=== PATIENT | female | born 1995 | race Caucasian/White ===

== ENCOUNTER 2017-12-08 22:29 | Inpatient (IN) | payer OTHER ==
[2017-12-08] MEDS ORDERED: SODIUM CHLORIDE 1,000 ML IV STA (22:45)
[2017-12-08] MEDS ORDERED: ONDANSETRON 4 MG/2 ML VIAL IVPUSH ONE ×2 (22:45→23:17)
[2017-12-08] MEDS ORDERED: FAMOTIDINE IV 20 MG/12 ML VIAL IVPUSH ONE (22:47)
--- NOTE | 2017-12-08 22:54 | PDOC ---
History of Present Illness - History of Present Illness Initial Comments: Ms Almanzar is a 22yo otherwise healthy F who presented to ER with 2 days of intractable vomiting and abdominal pain. States that she felt epigastric pain that is now constant. The pain is at times post-prandial, and is at times positional (worse with lying down). Vomiting is NBNB. She denies similar symptoms in the past. She went to [facility] ER, had an abdominal XR and was not given a diagnosis or treatment. Denies fevers, chest pain, shortness of breath. She denies alcohol, smoking, drugs. Pt was actively wretching in the room and it was difficult to get more history. 12/08/17 23:19 <Aubrey Meza - Last Filed: 12/08/17 23:19> <Peter Reyna - Last Filed: 12/09/17 01:35> - General Chief Complaint: Nausea/Vomiting Stated Complaint: SICK Time Seen by Provider: 12/08/17 22:42 Past History - Past Medical History Asthma: No Cancer: No Cardiac Disorders: No COPD: No Diabetes: No HTN: No Seizures: No Thyroid Disease: No Other medical history: Pt denies - Reproductive History (#): 3 Para: 1 Cervical CA: No Dysfunctional Uterine Bleeding: No Ectopic : No Endometrial CA: No Polycystic Ovaries: No Therapeutic (s) & number: Yes (1) Tubal Ligation: No Spontaneous : 0 - Immunization History Immunization Up to Date: Yes - Suicide/Smoking/Psychosocial Hx Smoking Status: No Smoking History: Never smoked Have you smoked in the past 12 months: No Number of Cigarettes Smoked Daily: 0 Information on smoking cessation initiated: No Hx Alcohol Use: No Drug/Substance Use Hx: No Substance Use Type: None Hx Substance Use Treatment: No <Aubrey Meza - Last Filed: 12/08/17 23:19> <Peter Reyna - Last Filed: 12/09/17 01:35> - Past Medical History Allergies/Adverse Reactions: Allergies Allergy/AdvReac Type Severity Reaction Status Date / Time No Known Allergies Allergy Verified 08/24/16 14:49 Home Medications: Ambulatory Orders NK [No Known Home Medication] 12/08/17 Review of Systems - Review of Systems Able to Perform ROS?: Yes Constitutional: No: Chills, Diaphoresis, Fever HEENTM: No: Eye Pain, Blurred Vision, Tearing Respiratory: No: Cough, Orthopnea, Shortness of Breath Cardiac (ROS): No: Chest Pain, Edema, Irregular Heart Rate ABD/GI: Yes: Vomiting, Abdominal cramping : No: Burning, Dysuria, Discharge Musculoskeletal: No: Back Pain, Gout, Joint Pain Integumentary: No: Bruising, Change in Color Neurological: No: Headache, Numbness, Paresthesia Psychiatric: No: Anxiety, Depression, Frequent Crying Endocrine: No: Excessive Sweating, Flushing Hematologic/Lymphatic: No: Anemia, Blood Clots, Easy Bleeding <Aubrey Meza - Last Filed: 12/08/17 23:19> *Physical Exam - Vital Signs Last Vital Signs Temp Pulse Resp BP Pulse Ox 98.1 F 70 18 120/82 96 12/08/17 22:41 12/08/17 22:41 12/08/17 22:41 12/08/17 22:41 12/08/17 22:41 - Physical Exam Comments: GEN: Awake but ill appearing, actively wretching and vomiting during interview HEENT: PERRLA, EOMi CV: S1, S2, RRR LUNG: CTABL ABD: Soft, diffuse tenderness, mostly in epigastrium MSK: NO edema, no erythema NEURO: CN 2-12 intact <Aubrey Meza - Last Filed: 12/08/17 23:19> - Vital Signs Last Vital Signs Temp Pulse Resp BP Pulse Ox 98.1 F 70 18 120/82 96 12/08/17 22:41 12/08/17 22:41 12/08/17 22:41 12/08/17 22:41 12/08/17 22:41 <Peter Reyna - Last Filed: 12/09/17 01:35> ED Treatment Course - LABORATORY CBC & Chemistry Diagram: 12/08/17 22:55 12/08/17 22:55 <Aubrey Meza - Last Filed: 12/08/17 23:19> - LABORATORY CBC & Chemistry Diagram: 12/08/17 22:55 12/08/17 23:21 - ADDITIONAL ORDERS Additional order review: Laboratory Results 12/08/17 12/08/17 12/08/17 23:31 23:21 22:55 Sodium 142 Potassium 3.6 Chloride 110 H Carbon Dioxide 22 Anion Gap 10 BUN 12 Creatinine 0.9 Creat Clearance w eGFR > 60 Random Glucose 157 H Calcium 8.9 Total Bilirubin 0.6 AST 11 L ALT 14 Alkaline Phosphatase 65 Creatine Kinase Troponin I Total Protein 7.1 Albumin 3.9 Lipase 146 Beta HCG, Quant < 1.0 Cancelled 12/08/17 12/08/17 22:55 22:55 Sodium Cancelled Potassium Cancelled Chloride Cancelled Carbon Dioxide Cancelled Anion Gap Cancelled BUN Cancelled Creatinine Cancelled Creat Clearance w eGFR Cancelled Random Glucose Cancelled Calcium Cancelled Total Bilirubin Cancelled AST Cancelled ALT Cancelled Alkaline Phosphatase Cancelled Creatine Kinase Cancelled Troponin I Cancelled Total Protein Cancelled Albumin Cancelled Lipase Cancelled Beta HCG, Quant 12/08/17 22:55 RBC 4.79 MCV 88.8 MCHC 33.2 RDW 13.5 D MPV 9.9 D Neutrophils % 81.6 Lymphocytes % 11.8 D Monocytes % 6.0 D Eosinophils % 0.2 D Basophils % 0.4 - Medications Given in the ED: ED Medications Discontinued Medications Generic Name Dose Route Start Last Admin Trade Name Freq PRN Reason Stop Dose Admin Sodium Chloride 1,000 mls @ 1,000 mls/hr 12/08/17 22:45 12/08/17 23:04 Normal Saline - IV 12/08/17 23:44 1,000 mls/hr ASDIR STA Administration Famotidine 20 mg in 12 mls @ 144 mls/hr 12/08/17 22:47 12/08/17 23:05 Pepcid 20 Mg/12 Ml Push IVPUSH 12/08/17 22:51 144 mls/hr ONCE ONE Administration Morphine Sulfate 2 mg 12/08/17 23:17 12/08/17 23:40 Morphine Injection - IVPUSH 12/08/17 23:18 2 mg ONCE ONE Administration Ondansetron HCl 4 mg 12/08/17 22:45 12/08/17 23:05 Zofran Injection IVPUSH 12/08/17 22:46 4 mg ONCE ONE Administration Ondansetron HCl 4 mg 12/08/17 23:17 12/08/17 23:40 Zofran Injection IVPUSH 12/08/17 23:18 4 mg ONCE ONE Administration <Peter Reyna - Last Filed: 12/09/17 01:35> Medical Decision Making - Medical Decision Making 22yo relatively healthy F who presents with epigastric pain and vomiting. DDx include but not limited to: , GERD/Peptic ulcer disease, Pancreatitis, Electrolyte abnormalities, Cholecystitis, Viral gastroenteritis -- CBC, CMP -- Lipase, Serum bHCG, Cardiac Profile -- 1L IVF bolus -- Zofran 4mg x1 -- Pepcid 40 x1 <Aubrey Meza - Last Filed: 12/08/17 23:19> *DC/Admit/Observation/Transfer <Aubrey Meza - Last Filed: 12/08/17 23:19> - Discharge Dispostion Admit: Yes <Peter Reyna - Last Filed: 12/09/17 01:35> Diagnosis at time of Disposition: Acute cholecystitis due to biliary calculus - Discharge Dispostion Condition at time of disposition: Fair
[2017-12-08] MEDS ORDERED: FAMOTIDINE 20 MG/50 ML IVPB 20 MG/50 ML MG IVPB ONE (22:58)
[2017-12-08] MEDS ORDERED: ONDANSETRON 4 MG/2 ML VIAL ONE ×2 (22:58→23:28)
[2017-12-08 23:02] LABS: BASO % 0.4 % (0-2.0); EOS % 0.2 % (0-4.5); HEMATOCRIT 42.6 % (32.4-45.2); HEMOGLOBIN 14.1 GM/dL (10.7-15.3); LYMPH % 11.8 % (8-40); MCH 29.5 pg (25.7-33.7); MCHC 33.2 g/dl (32.0-36.0); MEAN CELL VOLUME 88.8 fl (80-96); MEAN PLT VOLUME 9.9 fl (7.5-11.1); NEUT % 81.6 % (42.8-82.8); PLATELET COUNT 194 K/MM3 (134-434); RBC 4.79 M/mm3 (3.60-5.2); RDW 13.5 % (11.6-15.6); WHITE BLOOD COUNT 12.5 K/mm3 (4.0-10.0)
[2017-12-08] MEDS ORDERED: morphine CARPU-JECT 2 MG/1 ML DISP.SYRIN IVPUSH ONE (23:17)
--- NOTE | 2017-12-08 23:22 | PDOC ---
Attending Attestation - Resident Resident Name: Aubrey Meza - ED Attending Attestation I have performed the following: I have examined & evaluated the patient, The case was reviewed & discussed with the resident, I agree w/resident's findings & plan, Exceptions are as noted - HPI HPI: 12/08/17 23:19 Healthy 22-year-old female with no significant past medical history presents with intractable nausea/vomiting that is postprandial for the last 3 or 4 days. Associated with epigastric pain that is constant, not relieved with vomiting. Vomiting is nonbloody nonbilious, has had normal bowel movements without melena or blood. No fevers or chills, no recent travel, no recent antibiotics, no known sick contacts no diet changes. No history of recurring abdominal complaints, never needed an endoscopy, does not smoke/drink alcohol/smoke marijuana. - Physicial Exam PE: 12/08/17 23:20 Afebrile Actively retching, pale but no jaundice Abdomen is soft/nondistended. Tender with guarding in the right upper quadrant and right middle abdomen, also with epigastric tenderness. No CVA tenderness. - Medical Decision Making 12/08/17 23:21 Patient seen and evaluated with the resident. I agree with the overall evaluation, assessment, and management with the following summary of visit: 22-year-old female with no significant past medical or surgical history presents with intractable epigastric pain and nausea/vomiting for 3 days. Abdomen localizes to the epigastric and right upper quadrant regions, hemodynamically stable. Presentation could be most consistent with gastritis versus PUD versus biliary colic versus pancreatitis. No cardiopulmonary complaints, no complaints. Check urine Labs including lipase Right upper quadrant ultrasound IV fluid rehydration, pain control, antiemetics, antacids EKG Reassess 12/09/17 00:39 Urine negative, white count 12.5 with normal differential, chemistries are within normal limits including LFTs and lipase. Improved after pain meds and anti-emetics, receiving IV fluids. Now asleep, retching resolved. Awaiting ultrasound, reassess. 12/09/17 01:34 Ultrasound with positive gallstones, thickened gallbladder wall, positive sonographic Mcclain's consistent with cholecystitis. Pain improved slightly but now returning, still with tenderness and guarding in the right upper quadrant, also clinically consistent with cholecystitis. We'll give another dose of pain medication, start antibiotics, admit for cholecystitis and surgical consultation. 12/09/17 01:47 Accepted for inpatient med/surg by Dr. Rubin, signout given to Dr. Rosario. Heart Score/ECG Review #1 General ECG Interpretation: Sinus Rhythm, Normal Rate (70), Normal Intervals ( qtc 453), No acute ischemic changes
[2017-12-08] MEDS ORDERED: MORPHINE SULFATE 10 MG/1 ML *VIAL ONE (23:28)
[2017-12-09 00:07] LABS: LIPASE 146 U/L (73-393)
[2017-12-09 00:07] LABS: ALBUMIN 3.9 g/dl (3.4-5.0); ALK PHOS 65 U/L (45-117); ANION GAP 10 (8-16); BILIRUBIN,TOTAL 0.6 mg/dL (0.2-1.0); BLOOD UREA NITROGEN 12 mg/dL (7-18); CALCIUM 8.9 mg/dL (8.5-10.1); CHLORIDE 110 mmol/L (98-107); CO2 22 mmol/L (21-32); CREATININE 0.9 mg/dL (0.55-1.02); GLUCOSE,RANDOM 157 mg/dL (74-106); POTASSIUM 3.6 mmol/L (3.5-5.1); SGOT/AST 11 U/L (15-37); SGPT/ALT 14 U/L (12-78); SODIUM 142 mmol/L (136-145); TOT PROT 7.1 g/dl (6.4-8.2)
[2017-12-09] MEDS ORDERED: PIPERACILLIN/TAZOB 4.5 GM 4.5 GM/100 ML BAG IVPB ONE ×2 (01:29→01:40)
[2017-12-09] MEDS ORDERED: morphine CARPU-JECT 4 MG/1 ML DISP.SYRIN IVPUSH ONE (01:33)
--- NOTE | 2017-12-09 02:24 | PN ---
Teaching Attending Note Name of Resident: Christoph Rosario ATTENDING PHYSICIAN STATEMENT I saw and evaluated the patient. I reviewed the resident's note and discussed the case with the resident. I agree with the resident's findings and plan as documented. SUBJECTIVE:Patient c/o Vomiting and epigastric pain and on evaluation in ED found to have leucocystosis and USG showing Gallstones OBJECTIVE: Vital Signs Temperature 98.2 F 12/09/17 03:22 Pulse Rate 67 12/09/17 03:22 Respiratory Rate 19 12/09/17 03:22 Blood Pressure 134/87 12/09/17 03:22 O2 Sat by Pulse Oximetry (%) 99 12/09/17 03:22 GEN:Anxious, A&Ox3, mild distress HEENT: NC, AT, PERRLA, EOMI,MMM CVS: RRR, S1, S2 no M/G/R LUNGS:CTA, wheezing or rhonchi ABD:Soft, tenderness RUQ, Mcclain negative, ND, Diminished BS EXT:Nl ROM, pulses 2+, no edema CBCD WBC 12.5 K/mm3 (4.0-10.0) H 12/08/17 22:55 RBC 4.79 M/mm3 (3.60-5.2) 12/08/17 22:55 Hgb 14.1 GM/dL (10.7-15.3) D 12/08/17 22:55 Hct 42.6 % (32.4-45.2) D 12/08/17 22:55 MCV 88.8 fl (80-96) 12/08/17 22:55 MCHC 33.2 g/dl (32.0-36.0) 12/08/17 22:55 RDW 13.5 % (11.6-15.6) D 12/08/17 22:55 Plt Count 194 K/MM3 (134-434) D 12/08/17 22:55 MPV 9.9 fl (7.5-11.1) D 12/08/17 22:55 CMP Sodium 142 mmol/L (136-145) 12/08/17 23:21 Potassium 3.6 mmol/L (3.5-5.1) 12/08/17 23:21 Chloride 110 mmol/L (98-107) H 12/08/17 23:21 Carbon Dioxide 22 mmol/L (21-32) 12/08/17 23:21 Anion Gap 10 (8-16) 12/08/17 23:21 BUN 12 mg/dL (7-18) 12/08/17 23:21 Creatinine 0.9 mg/dL (0.55-1.02) 12/08/17 23:21 Creat Clearance w eGFR > 60 (>60) 12/08/17 23:21 Calcium 8.9 mg/dL (8.5-10.1) 12/08/17 23:21 Total Bilirubin 0.6 mg/dL (0.2-1.0) 12/08/17 23:21 AST 11 U/L (15-37) L 12/08/17 23:21 ALT 14 U/L (12-78) 12/08/17 23:21 Alkaline Phosphatase 65 U/L (45-117) 12/08/17 23:21 Total Protein 7.1 g/dl (6.4-8.2) 12/08/17 23:21 Albumin 3.9 g/dl (3.4-5.0) 12/08/17 23:21 ASSESSMENT AND PLAN: Biliary colick unlikely acute Cholelithiasis NPO, IVF, Protonix, Zofran and Morphine prn Ice chips as tolerated Surgery consult Patient counselled on disease pathology and risk factors. Counselled on diet. DVT prophylaxis
[2017-12-09] MEDS ORDERED: MORPHINE SULFATE 10 MG/1 ML *VIAL IVPUSH PRN (03:31)
[2017-12-09] MEDS ORDERED: SODIUM CHLORIDE 1,000 ML IV SCH (03:45)
[2017-12-09 03:53] VITALS: BMI 27.1
[2017-12-09] MEDS ORDERED: ONDANSETRON 4 MG/2 ML VIAL IVPB PRN (03:58)
--- NOTE | 2017-12-09 04:00 | HP ---
CHIEF COMPLAINT: abd pain, n/v HISTORY OF PRESENT ILLNESS: 22 y/o F w/no PMH presents to the ER with RUQ pain and nausea and vomiting for the past 3 days. Pain is worse with food and usually occurs after a couple hours of eating and vomiting also brought on after eating. Vomit is nonbloody and nonbilious and consisted of food that was eaten previously. Pts last BM was yesterday morning which she states was normal with no blood. This is the first time she has experienced these symptoms. She was recently at [facility] for this pain 2 days before coming to [facility] where she states an XR was taken of her abdomen and no acute findings seen on XR and was discharged home from ER. Pain persisted and pt decided to come to [facility]. SHe denies fevers, chills, recent travel, sick contacts, recent change in diet, CP, SOB, SPICER, LE swelling. ER course was notable for: (1) zofran, zosyn, pepcid (2) RUQ u/s (3) Recent Travel: denies PAST MEDICAL HISTORY: no pmh PAST SURGICAL HISTORY: no previous surgeries Social History: Smoking: never Alcohol: denies Drugs: denies Family History: no family hx Allergies No Known Allergies Allergy (Verified 08/24/16 14:49) HOME MEDICATIONS: Home Medications Medication Instructions Recorded NK [No Known Home Medication] 12/08/17 REVIEW OF SYSTEMS CONSTITUTIONAL: Absent: fever, chills HEENT: Absent: visual changes CARDIOVASCULAR: Absent: chest pain, lightheadedness, peripheral edema RESPIRATORY: Absent: cough, shortness of breath GASTROINTESTINAL:+n/v, abd pain Absent: blood in stool GENITOURINARY: Absent: dysuria, frequency, hematuria NEUROLOGIC: Absent: headache, dizziness PHYSICAL EXAMINATION Vital Signs - 24 hr 12/08/17 12/09/17 22:41 02:07 Temperature 98.1 F 98.1 F Pulse Rate 70 Pulse Rate [ 82 Right Radial] Respiratory 18 19 Rate Blood Pressure 120/82 Blood Pressure 110/76 [Left Arm] O2 Sat by Pulse 96 99 Oximetry (%) GENERAL: Awake, alert, and fully oriented, in no acute distress. HEAD: Normal with no signs of trauma. EYES:extraocular movements intact, sclera anicteric, conjunctiva clear. NECK: Normal range of motion, supple. LUNGS: Breath sounds equal, clear to auscultation bilaterally. No wheezes, and no crackles. No accessory muscle use. HEART: Regular rate and rhythm, normal S1 and S2 without murmur, rub or gallop. ABDOMEN: RUQ TTP, decreased bowel sounds. soft, non-distended. UPPER EXTREMITIES: warm, well-perfused. No peripheral edema. LOWER EXTREMITIES: 2+ pulses, warm, well-perfused. No peripheral edema. NEUROLOGICAL: Cranial nerves II-XII intact. Normal speech. Gait not observed. PSYCHIATRIC: Cooperative. Good eye contact. Appropriate mood and affect. SKIN: Warm, dry Laboratory Results - last 24 hr 12/08/17 12/08/17 12/08/17 22:55 22:55 22:55 WBC 12.5 H RBC 4.79 Hgb 14.1 D Hct 42.6 D MCV 88.8 MCH 29.5 D MCHC 33.2 RDW 13.5 D Plt Count 194 D MPV 9.9 D Neutrophils % 81.6 Lymphocytes % 11.8 D Monocytes % 6.0 D Eosinophils % 0.2 D Basophils % 0.4 Sodium Cancelled Potassium Cancelled Chloride Cancelled Carbon Dioxide Cancelled Anion Gap Cancelled BUN Cancelled Creatinine Cancelled Creat Clearance w eGFR Cancelled Random Glucose Cancelled Calcium Cancelled Total Bilirubin Cancelled AST Cancelled ALT Cancelled Alkaline Phosphatase Cancelled Creatine Kinase Cancelled Troponin I Cancelled Total Protein Cancelled Albumin Cancelled Lipase Cancelled Beta HCG, Quant 12/08/17 12/08/17 12/08/17 22:55 23:21 23:31 WBC RBC Hgb Hct MCV MCH MCHC RDW Plt Count MPV Neutrophils % Lymphocytes % Monocytes % Eosinophils % Basophils % Sodium 142 Potassium 3.6 Chloride 110 H Carbon Dioxide 22 Anion Gap 10 BUN 12 Creatinine 0.9 Creat Clearance w eGFR > 60 Random Glucose 157 H Calcium 8.9 Total Bilirubin 0.6 AST 11 L ALT 14 Alkaline Phosphatase 65 Creatine Kinase Troponin I Total Protein 7.1 Albumin 3.9 Lipase 146 Beta HCG, Quant Cancelled < 1.0 Active Medications Ceftriaxone Sodium 1 gm/ (Dextrose) 50 mls @ 100 mls/hr IVPB DAILY KARTIK Sodium Chloride (Normal Saline -) 1,000 mls @ 125 mls/hr IV ASDIR KARTIK Morphine Sulfate (Morphine Injection -) 1 mg IVPUSH Q6H PRN PRN Reason: PAIN LEVEL 6-10 Ondansetron HCl (Zofran Injection) 4 mg IVPB Q6H PRN PRN Reason: NAUSEA Pantoprazole Sodium (Protonix Iv) 40 mg IVPUSH DAILY KARTIK ASSESSMENT/PLAN: 22 y/o F w/no PMH presents to the ER with RUQ pain and nausea and vomiting for the past 3 days. Admitted for biliary colic vs acute simona -RUQ pain, n/v -secondary to biliary colic vs acute simona -Surgery consulted -NS @ 125 ml/hr -NPO for now, until surgery can evaluate -Zofran 4mg q6h prn for nausea -pain control with morphine 1 mg IV q6h prn for pain 6-10 -Ceftriaxone 1g qd -protonix 40 mg iv qd -f/u official RUQ U/S read -DVT ppx -early ambulation -FEN -NS @ 125 ml/hr -Monitor electrolytes -NPO until surgery evaluates patient -Dispo: Monitor on m/s Visit type - Emergency Visit Emergency Visit: Yes ED Registration Date: 12/09/17 Care time: The patient presented to the Emergency Department on the above date and was hospitalized for further evaluation of their emergent condition. - New Patient This patient is new to me today: Yes Date on this admission: 12/09/17 - Critical Care Critical Care patient: No
[2017-12-09 08:15] LABS: BASO % 0.2 % (0-2.0); EOS % 0.2 % (0-4.5); HEMATOCRIT 39.7 % (32.4-45.2); HEMOGLOBIN 13.2 GM/dL (10.7-15.3); LYMPH % 17.6 % (8-40); MCH 29.3 pg (25.7-33.7); MCHC 33.3 g/dl (32.0-36.0); MEAN PLT VOLUME 9.8 fl (7.5-11.1); MONO % 9.5 % (3.8-10.2); NEUT % 72.5 % (42.8-82.8); PLATELET COUNT 153 K/MM3 (134-434); RBC 4.51 M/mm3 (3.60-5.2); RDW 13.5 % (11.6-15.6)
[2017-12-09 08:20] LABS: INR 1.12 (0.82-1.09); PROTHROMBIN TIME (PATIENT) 12.7 SEC (9.98-11.88)
[2017-12-09 08:22] LABS: ACTIVATED PTT 27.4 SECONDS (26.9-34.4)
--- NOTE | 2017-12-09 08:42 | EKG ---
Test Reason : Blood Pressure : / mmHG Vent. Rate : 070 BPM Atrial Rate : 070 BPM P-R Int : 156 ms QRS Dur : 086 ms QT Int : 420 ms P-R-T Axes : 059 072 038 degrees QTc Int : 453 ms NORMAL SINUS RHYTHM NORMAL ECG NO PREVIOUS ECGS AVAILABLE Confirmed by AMY VARELA, OLAYINKA ([id number]) on 12/09/2017 8:41:46 AM Referred By: Confirmed By:OLAYINKA REYES MD
[2017-12-09] MEDS: PANTOPRAZOLE SODIUM 40 MG VIAL IVPUSH SCH (09:24)
[2017-12-09] MEDS ORDERED: CEFTRIAXONE 1 G/50 ML PREMIX 50 ML IVPB SCH (10:00)
--- NOTE | 2017-12-09 10:40 | CONSULT ---
Consult Consult Specialty:: General Surgery Referred by:: Hospitalist team Reason for Consultation:: acute cholecystitis - History of Present Illness Chief Complaint: epigastric and upper abdominal pain, n/v History of Present Illness: 22yo healthy F presented with epigastric pain associated with nausea and vomiting over the last few days. She describes prior episodes of LUQ pain after eating, which would resolve with belching or vomiting. This episode began after eating some hors' d'oeuvres, but was more epigastric and radiated up into her chest. She was seen at [facility] 2 days ago, had an AXR which she said showed nothing, and was discharged from the ER. The pain persisted, and she came here last night. In the ER, she was afebrile, with wbc 12, normal LFTs and lipase, but was still vomiting. US showed multiple gallstones, thickened gallbladder wall and positive Mcclain's sign. She was admitted to hospitalist for acute cholecystitis. She got Zosyn in the ER about 2am, and Ceftriaxone this morning. Labs this am show wbc down to 8. Her nausea is resolved, and she is thirsty. 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 Last normal BM was yesterday before coming in. [place] warm at home, but without fever or chills. No urinary complaints, no diarrhea. Surgery is consulted for acute cholecystitis. - History Source History Provided By: Patient Limitations to Obtaining History: No Limitations - Past Medical History ...LMP: 12/07/16 (on Depo-Provera) ...: No ...: 2 ...Para: 2 ( x2) Additional Medical History: none - Past Surgical History Past Surgical History: Yes: None - Alcohol/Substance Use Hx Alcohol Use: No History of Substance Use: reports: None - Smoking History Smoking history: Never smoked Have you smoked in the past 12 months: No Aproximately how many cigarettes per day: 0 - Social History ADL: Independent History of Recent Travel: No Home Medications - Allergies Allergies/Adverse Reactions: Allergies Allergy/AdvReac Type Severity Reaction Status Date / Time No Known Allergies Allergy Verified 08/24/16 14:49 - Home Medications Home Medications: Ambulatory Orders NK [No Known Home Medication] 12/08/17 Home Medications (free text): Depo-Provera injections Family Disease History - Family Disease History Family History: Unremarkable Review of Systems - Review of Systems Constitutional: reports: Fever (subjectively warm but no fever at home). denies : Chills Eyes: denies: Blurred Vision, Recent Change in Vision HENT: denies: Difficult Swallowing, Hearing Loss, Nasal Congestion, Throat Pain Neck: denies: Swollen Glands, Tenderness Cardiovascular: reports: Chest Pain (substernal pain with hpi). denies: Palpitations Respiratory: denies: Cough, SOB Gastrointestinal: reports: Abdominal Pain (with hpi), Nausea (with hpi), Vomiting (with hpi). denies: Constipation, Diarrhea Genitourinary: denies: Burning, Dysuria, Flank Pain Breasts: reports: Other (bilateral piercings). denies: Skin Changes Musculoskeletal: denies: Back Pain, Joint Pain, Muscle Pain Integumentary: denies: Change in Color, Rash Neurological: denies: Dizziness, Headache Psychiatric: denies: Anxiety, Depression Physical Exam Vital Signs: Vital Signs Temperature 98.2 F 12/09/17 03:22 Pulse Rate 67 12/09/17 03:22 Respiratory Rate 19 12/09/17 03:22 Blood Pressure 134/87 12/09/17 03:22 O2 Sat by Pulse Oximetry (%) 99 12/09/17 03:22 Constitutional: Yes: Well Nourished, No Distress, Calm Eyes: Yes: Conjunctiva Clear, EOM Intact. No: Sclera Icterus HENT: Yes: Atraumatic, Normocephalic Neck: Yes: Supple, Trachea Midline Cardiovascular: Yes: Regular Rate and Rhythm, Tachycardia (mild). No: Murmur Respiratory: Yes: Regular, CTA Bilaterally Gastrointestinal: Yes: Normal Bowel Sounds, Soft, Tenderness (RUQ and epigastric , no R/G), Tenderness, Epigastrium, Other (supraumbilical piercing - "for years, " clean site). No: Distention, Tenderness, Rebound, Vomiting ...Rectal Exam: Yes: Deferred Renal/: No: CVA Tenderness - Left, CVA Tenderness - Right Breast(s): Yes: Other (bilateral piercings). No: Skin Changes Musculoskeletal: No: Back Pain (no direct tenderness), Joint Stiffness, Joint Swelling Extremities: No: Cool, Cyanosis Edema: No Peripheral Pulses WNL: Yes Integumentary: Yes: Body Piercing (nipples, umbilicus), Tattoos. No: Jaundice, Rash Neurological: Yes: Alert, Oriented Psychiatric: Yes: Alert, Oriented Labs: CBC, BMP 12/09/17 06:50 12/08/17 23:21 CMP Sodium 142 mmol/L (136-145) 12/08/17 23:21 Potassium 3.6 mmol/L (3.5-5.1) 12/08/17 23:21 Chloride 110 mmol/L (98-107) H 12/08/17 23:21 Carbon Dioxide 22 mmol/L (21-32) 12/08/17 23:21 Anion Gap 10 (8-16) 12/08/17 23:21 BUN 12 mg/dL (7-18) 12/08/17 23:21 Creatinine 0.9 mg/dL (0.55-1.02) 12/08/17 23:21 Creat Clearance w eGFR > 60 (>60) 12/08/17 23:21 Random Glucose 157 mg/dL (74-106) H 12/08/17 23:21 Calcium 8.9 mg/dL (8.5-10.1) 12/08/17 23:21 Total Bilirubin 0.6 mg/dL (0.2-1.0) 12/08/17 23:21 AST 11 U/L (15-37) L 12/08/17 23:21 ALT 14 U/L (12-78) 12/08/17 23:21 Alkaline Phosphatase 65 U/L (45-117) 12/08/17 23:21 Creatine Kinase Cancelled 12/08/17 22:55 Troponin I Cancelled 12/08/17 22:55 Total Protein 7.1 g/dl (6.4-8.2) 12/08/17 23:21 Albumin 3.9 g/dl (3.4-5.0) 12/08/17 23:21 Lipase 146 U/L (73-393) 12/08/17 23:31 Beta HCG, Quant < 1.0 mIU/ml 12/08/17 23:31 Imaging - Results Ultrasound: Image Reviewed (multiple gallstones, thickened wall, distended gallbladder, + Mcclain's by report; official read pending) Problem List - Problems (1) Calculus of gallbladder with acute cholecystitis without obstruction Assessment/Plan: admitted to hospitalist overnight NPO/IVF - few ice chips ok until midnight consult ID for antibiotics pain meds prn GI/DVT prophylaxis Discussed with patient risks, benefits and alternatives of laparoscopic possible open cholecystectomy, including but not limited to bleeding, infection , injury to adjacent structures, bile leak or ductal injury, intraabdominal abscess, hernia, need for further procedures; alternatives include antibiotics, delayed or no surgery - risks of this include cholangitis, recurrence of cholecystitis, pancreatitis, sepsis. Patient desires to proceed with operation. Informed consent signed for same. Will plan for OR tomorrow pending am labs without concern for cbd obstruction. Anticipate resumption of po postop, alternating tylenol and ibuprofen for pain prn postop with narcotic breakthrough only (pt prefers not to take). Thank you for the opportunity to participate in the care of this patient. Code(s): K80.00 - CALCULUS OF GALLBLADDER W ACUTE CHOLECYST W/O OBSTRUCTION (2) Nausea & vomiting Assessment/Plan: resolved Code(s): R11.2 - NAUSEA WITH VOMITING, UNSPECIFIED Qualifiers: Vomiting type: unspecified Vomiting Intractability: non-intractable Qualified Code(s): R11.2 - Nausea with vomiting, unspecified (3) Epigastric abdominal pain Code(s): R10.13 - EPIGASTRIC PAIN
--- NOTE | 2017-12-09 10:55 | CON.ID ---
Consult Consult Specialty:: infectious diseases Referred by:: Reason for Consultation:: cholecystitis - History of Present Illness Chief Complaint: abd pain History of Present Illness: healthy 22 y/o female who loves eating fatty food with no significant past medical history presents with intractable nausea/vomiting that is postprandial for the last 3 or 4 days. Associated with epigastric pain that is constant, not relieved with vomiting. Vomiting is nonbloody nonbilious, patient admitted to the hospital and worked up and found to have ac.choleycystitis continues to have abd pain which is severe - History Source History Provided By: Patient Limitations to Obtaining History: No Limitations - Past Medical History ...LMP: 12/07/16 (on Depo-Provera) ...: No Additional Medical History: none - Past Surgical History Past Surgical History: Yes: None - Alcohol/Substance Use Hx Alcohol Use: No History of Substance Use: reports: None - Smoking History Smoking history: Never smoked Have you smoked in the past 12 months: No Aproximately how many cigarettes per day: 0 - Social History ADL: Independent History of Recent Travel: No Home Medications - Allergies Allergies/Adverse Reactions: Allergies Allergy/AdvReac Type Severity Reaction Status Date / Time No Known Allergies Allergy Verified 08/24/16 14:49 - Home Medications Home Medications: Ambulatory Orders NK [No Known Home Medication] 12/08/17 Review of Systems - Review of Systems Constitutional: reports: No Symptoms Eyes: reports: No Symptoms HENT: reports: No Symptoms Neck: reports: No Symptoms Cardiovascular: reports: No Symptoms Respiratory: reports: No Symptoms Gastrointestinal: reports: Abdominal Pain, Nausea, Vomiting Genitourinary: reports: No Symptoms Musculoskeletal: reports: No Symptoms Integumentary: reports: No Symptoms Neurological: reports: No Symptoms Endocrine: reports: No Symptoms Hematology/Lymphatic: reports: No Symptoms Psychiatric: reports: No Symptoms Physical Exam Vital Signs: Vital Signs Temperature 98.2 F 12/09/17 03:22 Pulse Rate 67 12/09/17 03:22 Respiratory Rate 19 12/09/17 03:22 Blood Pressure 134/87 12/09/17 03:22 O2 Sat by Pulse Oximetry (%) 99 12/09/17 03:22 Constitutional: Yes: Well Nourished, Calm, Mild Distress Cardiovascular: Yes: Regular Rate and Rhythm Respiratory: Yes: Regular, CTA Bilaterally Gastrointestinal: Yes: Soft, Tenderness (ruq), Other. No: Tenderness, Rebound Musculoskeletal: Yes: WNL Extremities: Yes: WNL Neurological: Yes: Alert, Oriented Psychiatric: Yes: Alert, Oriented Labs: CBC, BMP 12/09/17 06:50 12/08/17 23:21 Imaging - Results Ultrasound: Report Reviewed Assessment/Plan abd pain nausea vomiting ac choleycystitis plan conitnue zosyn hydration rest as per surgery continue current mgmt
[2017-12-09 11:21] LABS: URINE APPEARANCE SLCLOUDY; URINE BILIRUBIN NEGATIVE (NEGATIVE); URINE BLOOD NEGATIVE (NEGATIVE); URINE COLOR YELLOW; URINE GLUCOSE (UA) NEGATIVE (NEGATIVE); URINE KETONE 1+ (NEGATIVE); URINE NITRITE NEGATIVE (NEGATIVE); URINE PROTEIN NEGATIVE (NEGATIVE); URINE UROBILINOGEN NEGATIVE mg/dL (0.2-1.0)
[2017-12-09 11:22] LABS: URINE LEUK ESTERASE 2+ (NEGATIVE)
[2017-12-09 11:24] LABS: EPI CELLS RARE /HPF (FEW); URINE HYALINE CAST 1 /lpf; URINE MUCUS RARE
[2017-12-09] MEDS ORDERED: SODIUM CHLORIDE 1,000 ML IV STA (11:34)
[2017-12-09] MEDS: PIPERACILLIN/TAZOB 3.375 GM 3.375 GM in DEXTROSE 5%-WATER - 50 ML IVPB SCH ×2 (12:35→17:17)
[2017-12-09] MEDS: D5-1/2NS+20 MEQ KCL - 20 MEQ/1,000 ML INFUS.BAG IV SCH ×2 (14:18→22:32)
[2017-12-09] MEDS ORDERED: MORPHINE SULFATE 10 MG/1 ML *VIAL IVPUSH ONE (15:00)
[2017-12-09] MEDS ORDERED: PT OWN MED DRAWER 7, Y5N ONE ×2 (15:04→17:12)
[2017-12-09] MEDS: MORPHINE SULFATE 10 MG/1 ML *VIAL IVPUSH PRN (21:08)
[2017-12-10] MEDS: PIPERACILLIN/TAZOB 3.375 GM 3.375 GM in DEXTROSE 5%-WATER - 50 ML IVPB SCH ×4 (01:36→18:42)
[2017-12-10] MEDS: MORPHINE SULFATE 10 MG/1 ML *VIAL IVPUSH PRN ×2 (02:59→09:44)
--- NOTE | 2017-12-10 05:53 | PN ---
Physical Exam: SUBJECTIVE: Patient seen and examined OBJECTIVE: Vital Signs Period Temp Pulse Resp BP Sys/Garcia Pulse Ox Last 24 Hr 97.9 F-98.3 F 72-100 18-20 120-151/72-90 99-99 GENERAL: The patient is awake, alert, and fully oriented, in no acute distress. HEAD: Normal with no signs of trauma. EYES: PERRL, extraocular movements intact, sclera anicteric, conjunctiva clear. No ptosis. ENT: Ears normal, nares patent, oropharynx clear without exudates, moist mucous membranes. NECK: Trachea midline, full range of motion, supple. LUNGS: Breath sounds equal, clear to auscultation bilaterally, no wheezes, no crackles, no accessory muscle use. HEART: Regular rate and rhythm, S1, S2 without murmur, rub or gallop. ABDOMEN: Soft, nontender, nondistended, normoactive bowel sounds, no guarding, no rebound, no hepatosplenomegaly, no masses. EXTREMITIES: 2+ pulses, warm, well-perfused, no edema. NEUROLOGICAL: Cranial nerves II through XII grossly intact. Normal speech, gait not observed. PSYCH: Normal mood, normal affect. SKIN: Warm, dry, normal turgor, no rashes or lesions noted Laboratory Results - last 24 hr 12/09/17 12/09/17 12/09/17 06:50 06:50 06:50 WBC 8.0 D RBC 4.51 Hgb 13.2 Hct 39.7 MCV 88.0 MCH 29.3 MCHC 33.3 RDW 13.5 Plt Count 153 D MPV 9.8 Neutrophils % 72.5 Lymphocytes % 17.6 D Monocytes % 9.5 Eosinophils % 0.2 Basophils % 0.2 PT with INR 12.70 H INR 1.12 D PTT (Actin FS) 27.4 Urine Color Urine Appearance Urine pH Ur Specific [place] Urine Protein Urine Glucose (UA) Urine Ketones Urine Blood Urine Nitrite Urine Bilirubin Urine Urobilinogen Ur Leukocyte Esterase Urine WBC (Auto) Urine RBC (Auto) Ur Epithelial Cells Hyaline Casts Urine Mucus Urine HCG, Qual Blood Type O POSITIVE Antibody Screen Negative 12/09/17 12/09/17 10:59 16:45 WBC RBC Hgb Hct MCV MCH MCHC RDW Plt Count MPV Neutrophils % Lymphocytes % Monocytes % Eosinophils % Basophils % PT with INR INR PTT (Actin FS) Urine Color Yellow Urine Appearance Slcloudy Urine pH 5.0 Ur Specific [place] 1.017 Urine Protein Negative Urine Glucose (UA) Negative Urine Ketones 1+ H Urine Blood Negative Urine Nitrite Negative Urine Bilirubin Negative Urine Urobilinogen Negative Ur Leukocyte Esterase 2+ H Urine WBC (Auto) 7 Urine RBC (Auto) 2 Ur Epithelial Cells Rare Hyaline Casts 1 Urine Mucus Rare Urine HCG, Qual Negative Blood Type Antibody Screen Active Medications Generic Name Dose Route Start Last Admin Trade Name Freq PRN Reason Stop Dose Admin Piperacillin Sod/Tazobactam 50 mls @ 100 mls/hr 12/09/17 11:00 12/10/17 01:36 Sod 3.375 gm/ Dextrose IVPB 100 mls/hr Q8H-IV KARTIK Administration Protocol Potassium Chloride/Dextrose/Sod Cl 20 meq in 1,000 mls @ 125 mls/hr 12/09/17 12:34 12/09/17 22:32 D5-1/2ns+20 Meq Kcl - IV 125 mls/hr ASDIR KARTIK Administration Morphine Sulfate 2 mg 12/09/17 21:00 12/10/17 02:59 Morphine Injection - IVPUSH 2 mg Q6H PRN Administration PAIN LEVEL 6-10 Ondansetron HCl 4 mg 12/09/17 03:58 Zofran Injection IVPB Q6H PRN NAUSEA Pantoprazole Sodium 40 mg 12/09/17 10:00 12/09/17 09:24 Protonix Iv IVPUSH 40 mg DAILY KARTIK Administration ASSESSMENT/PLAN:
[2017-12-10] MEDS: D5-1/2NS+20 MEQ KCL - 20 MEQ/1,000 ML INFUS.BAG IV SCH (07:06)
[2017-12-10 07:57] LABS: BASO % 0.2 % (0-2.0); EOS % 0.6 % (0-4.5); HEMATOCRIT 40.5 % (32.4-45.2); HEMOGLOBIN 13.4 GM/dL (10.7-15.3); LYMPH % 15.4 % (8-40); MCH 29.3 pg (25.7-33.7); MEAN CELL VOLUME 88.9 fl (80-96); MEAN PLT VOLUME 9.8 fl (7.5-11.1); MONO % 11.6 % (3.8-10.2); NEUT % 72.2 % (42.8-82.8); PLATELET COUNT 139 K/MM3 (134-434); RBC 4.56 M/mm3 (3.60-5.2); RDW 13.2 % (11.6-15.6); WHITE BLOOD COUNT 9.1 K/mm3 (4.0-10.0)
[2017-12-10 08:20] LABS: ALBUMIN 3.5 g/dl (3.4-5.0); ALK PHOS 67 U/L (45-117); ANION GAP 5 (8-16); BLOOD UREA NITROGEN 4 mg/dL (7-18); CALCIUM 8.2 mg/dL (8.5-10.1); CHLORIDE 103 mmol/L (98-107); CO2 28 mmol/L (21-32); GLUCOSE,RANDOM 92 mg/dL (74-106); LIPASE 139 U/L (73-393); SGOT/AST 8 U/L (15-37); SGPT/ALT 13 U/L (12-78); SODIUM 136 mmol/L (136-145); TOT PROT 6.8 g/dl (6.4-8.2)
[2017-12-10] MEDS ORDERED: PT OWN MED DRAWER 7, Y5N ONE ×3 (09:39→19:28)
[2017-12-10] MEDS: PANTOPRAZOLE SODIUM 40 MG VIAL IVPUSH SCH (09:43)
[2017-12-10] MEDS ORDERED: IBUPROFEN 600 MG TABLET (FP) PO PRN ×3 (12:00→21:00)
[2017-12-10] MEDS ORDERED: ACETAMINOPHEN 325 MG TABLET (FP) PO PRN ×2 (12:00→17:42)
[2017-12-10] MEDS ORDERED: ACETAMINOPHEN WITH CODEINE 300MG/30MG TABLET PO PRN ×2 (12:01→17:42)
[2017-12-10] MEDS ORDERED: MORPHINE SULFATE 10 MG/1 ML *VIAL IVPUSH PRN ×2 (12:04→17:42)
[2017-12-10] MEDS ORDERED: PROPOFOL 20 ML ONE ×2 (12:16→14:14)
[2017-12-10] MEDS ORDERED: MIDAZOLAM HCL 2 MG/2 ML SINGLE DOSE VIAL ONE (12:17)
[2017-12-10] MEDS ORDERED: ROCURONIUM BROMIDE 50 MG/5 ML VIAL ONE ×2 (12:17→13:12)
[2017-12-10] MEDS ORDERED: DEXAMETHASONE SOD PHOSPHATE 4 MG/1 ML VIAL ONE (12:52)
[2017-12-10] MEDS ORDERED: HYDROmorphone HCL CARPU-JECT 1 MG/1 ML DISP.SYRIN IVPUSH PRN (13:07)
[2017-12-10] MEDS ORDERED: IBUPROFEN 800 MG/8 ML IJ IVPB PRN (13:07)
[2017-12-10] MEDS ORDERED: LACTATED RINGERS SOLUTION 1,000 ML IV SCH (13:15)
--- NOTE | 2017-12-10 13:50 | PN ---
Progress Note, Physician History of Present Illness: patient stable for surgery today - Current Medication List Current Medications: Active Medications Acetaminophen (Tylenol -) 650 mg PO Q6H PRN PRN Reason: PAIN Acetaminophen/Codeine Phosphate (Tylenol # 3 -) 1 tab PO Q4H PRN PRN Reason: breakthrough pain Hydromorphone HCl (Dilaudid Injection -) 1 mg IVPUSH [id number] PRN PRN Reason: PAIN-PACU ORDER X 4 DOSES ONLY Piperacillin Sod/Tazobactam (Sod 3.375 gm/ Dextrose) 50 mls @ 100 mls/hr IVPB Q8H-IV KARTIK PRN Reason: Protocol Last Admin: 12/10/17 09:43 Dose: 100 mls/hr Potassium Chloride/Dextrose/Sod Cl (D5-1/2ns+20 Meq Kcl -) 20 meq in 1,000 mls @ 125 mls/hr IV ASDIR [facility] Last Admin: 12/10/17 07:06 Dose: 125 mls/hr Lactated Ringer's (Lactated Ringers Solution) 1,000 mls @ 125 mls/hr IV ASDIR KARTIK Ibuprofen (Motrin -) 600 mg PO Q6H PRN PRN Reason: PAIN Ibuprofen (Caldolor Injection -) 800 mg IVPB Q6H PRN PRN Reason: Pain - Pacu Morphine Sulfate (Morphine Injection -) 2 mg IVPUSH Q3H PRN PRN Reason: breakthrough pain only Ondansetron HCl (Zofran Injection) 4 mg IVPB Q6H PRN PRN Reason: NAUSEA Pantoprazole Sodium (Protonix Iv) 40 mg IVPUSH DAILY [facility] Last Admin: 12/10/17 09:43 Dose: 40 mg - Objective Vital Signs: Vital Signs Temperature 98.6 F 12/10/17 08:00 Pulse Rate 78 12/10/17 08:00 Respiratory Rate 20 12/10/17 09:00 Blood Pressure 140/90 12/10/17 08:00 O2 Sat by Pulse Oximetry (%) 99 12/10/17 09:00 Constitutional: Yes: No Distress, Calm HENT: Yes: Atraumatic Neck: Yes: Supple Cardiovascular: Yes: Regular Rate and Rhythm Respiratory: Yes: Regular, CTA Bilaterally Gastrointestinal: Yes: Soft, Tenderness Musculoskeletal: Yes: WNL Extremities: Yes: WNL Neurological: Yes: Alert, Oriented Psychiatric: Yes: Alert, Oriented Labs: CBC, BMP 12/10/17 06:10 12/10/17 06:10 INR, PTT INR 1.12 (0.82-1.09) D 12/09/17 06:50 Assessment/Plan abd pain nausea vomiting ac choleycystitis plan conitnue zosyn hydration rest as per surgery patient for or today
[2017-12-10] MEDS ORDERED: GLYCOPYRROLATE 0.2 MG/1 ML VIAL ONE (14:07)
[2017-12-10] MEDS ORDERED: BUPIVACAINE HCL/PF 0.5% (5MG/ML) 10 ML VIAL IJ ONE ×2 (14:07)
[2017-12-10] MEDS ORDERED: NEOSTIGMINE METHYLSULFATE 0.5 MG/ML - 10 ML MDV ONE (14:07)
--- NOTE | 2017-12-10 14:42 | OP ---
Operative Note - Note: Operative Date: 12/10/17 Pre-Operative Diagnosis: acute cholecystitis Operation: laparoscopic cholecystectomy Findings: tensely distended gallbladder with thick hydropic bile, decompressed of <10ml secondary to viscosity; very edematous gallbladder and wall, multiple mobile stones; critical view identified Post-Operative Diagnosis: Same as Pre-op Surgeon: Scott Ambriz Land Agent: Jason Brumfield Anesthesiologist/[employer] ASSOCIATE: Ana Luisa Steward Anesthesia: General, Local (20ml 0.5% marcaine) Specimens Removed: gallbladder to pathology Estimated Blood Loss (mls): 5 Fluid Volume Replaced (mls): 900 (crystalloid) Operative Report Dictated: Yes
[2017-12-10] MEDS ORDERED: ONDANSETRON 4 MG/2 ML VIAL IVPB PRN (17:42)
[2017-12-10] MEDS ORDERED: D5-1/2NS+20 MEQ KCL - 20 MEQ/1,000 ML INFUS.BAG IV SCH (17:42)
--- NOTE | 2017-12-10 20:03 | PN ---
Physical Exam: SUBJECTIVE: Patient seen and examined, complaining of 6/10 abdominal pain at incision sites. Has been getting up and walking to the bathroom. Ate chicken for dinner, tolerated well. OBJECTIVE: Vital Signs Period Temp Pulse Resp BP Sys/Garcia Pulse Ox Last 24 Hr 98 F-99.4 F 76-108 16-20 109-140/60-90 10-100 GENERAL: The patient is awake, alert, and fully oriented, in no acute distress. LUNGS: Breath sounds equal, clear to auscultation bilaterally, no wheezes, no crackles, no accessory muscle use. HEART: Regular rate and rhythm, S1, S2 without murmur, rub or gallop. ABDOMEN: Soft, diffusely tender, nondistended, hypoactive bowel sounds, no guarding, no rebound; surgical trochanter site dressings c/d/i EXTREMITIES: 2+ pulses, warm, well-perfused, no edema. NEUROLOGICAL: Cranial nerves II through XII grossly intact. Normal speech, gait not observed. Laboratory Results - last 24 hr 12/10/17 12/10/17 06:10 06:10 WBC 9.1 RBC 4.56 Hgb 13.4 Hct 40.5 MCV 88.9 MCH 29.3 MCHC 33.0 RDW 13.2 Plt Count 139 MPV 9.8 Neutrophils % 72.2 Lymphocytes % 15.4 Monocytes % 11.6 H Eosinophils % 0.6 D Basophils % 0.2 Sodium 136 Potassium 4.0 Chloride 103 Carbon Dioxide 28 Anion Gap 5 L BUN 4 L Creatinine 1.0 Creat Clearance w eGFR > 60 Random Glucose 92 Calcium 8.2 L Total Bilirubin 1.0 D AST 8 L ALT 13 Alkaline Phosphatase 67 Total Protein 6.8 Albumin 3.5 Lipase 139 Active Medications Generic Name Dose Route Start Last Admin Trade Name Freq PRN Reason Stop Dose Admin Acetaminophen 650 mg 12/10/17 17:42 Tylenol - PO Q6H PRN PAIN LEVEL 1 - 3 Acetaminophen/Codeine Phosphate 1 tab 12/10/17 17:42 Tylenol # 3 - PO Q4H PRN breakthrough pain scale 6-10 Fentanyl 50 mcg 12/10/17 15:19 Sublimaze Injection - IVPUSH [id number] PRN PAIN-PACU ORDER X 4 DOSES ONLY Potassium Chloride/Dextrose/Sod Cl 20 meq in 1,000 mls @ 125 mls/hr 12/10/17 17:42 D5-1/2ns+20 Meq Kcl - IV ASDIR KARTIK Piperacillin Sod/Tazobactam 50 mls @ 100 mls/hr 12/10/17 18:00 12/10/17 18:42 Sod 3.375 gm/ Dextrose IVPB 12/11/17 06:00 Not Given Q8H-IV KARTIK Protocol Ibuprofen 600 mg 12/10/17 21:00 Motrin - PO Q6H PRN PAIN LEVEL 4 - 6 Morphine Sulfate 2 mg 12/10/17 17:42 Morphine Injection - IVPUSH Q3H PRN breakthrough pain only Ondansetron HCl 4 mg 12/10/17 17:42 Zofran Injection IVPB Q6H PRN NAUSEA Pantoprazole Sodium 40 mg 12/11/17 10:00 Protonix Iv IVPUSH DAILY [facility] ASSESSMENT/PLAN 22 year old female with no significant PMH admitted for acute cholecystitis. Acute cholecystitis s/p laparoscopic cholecystectomy 12/10 --tolerating PO --pain well-managed Visit type - Emergency Visit Emergency Visit: Yes ED Registration Date: 12/09/17 Care time: The patient presented to the Emergency Department on the above date and was hospitalized for further evaluation of their emergent condition. - New Patient This patient is new to me today: Yes Date on this admission: 12/13/17 - Critical Care Critical Care patient: No
--- NOTE | 2017-12-10 22:30 | OP ---
DATE OF OPERATION: 12/10/2017 PREOPERATIVE DIAGNOSIS: Acute cholecystitis. POSTOPERATIVE DIAGNOSIS: Acute cholecystitis. PROCEDURE: Laparoscopic cholecystectomy. SURGEON: Scott Ambriz MD [employer] SUPERVISOR: Jason Brumfield MD ANESTHESIA: General endotracheal and local, 20 mL of 0.5% Marcaine. ESTIMATED BLOOD LOSS: 5 mL FLUIDS: 900 mL of crystalloid. SPECIMEN: Gallbladder to Pathology. FINDINGS: A tensely distended gallbladder with thick hydropic bile, decompressed of no more than 10 mL secondary to its viscosity; very edematous gallbladder and wall. Multiple mobile stones were identified in the gallbladder, and the critical view was identified. DISPOSITION: Stable and extubated to PACU. INDICATIONS FOR PROCEDURE: Patient is a generally healthy, 22-year-old female who was admitted through the emergency room with complaints of epigastric pain associated with nausea and vomiting over the last several days. She described previous episodes of left upper quadrant pain after eating, which seemed to resolve with belching or vomiting, but this time, her pain was more epigastric and radiated up into her chest. She was seen at another hospital 2 days prior and discharged from the ER after a negative abdominal film, but the pain persisted, and she came to our emergency room, where she was found to have a white count of 12, normal liver function tests and lipase, but was still actively vomiting. An ultrasound showed multiple gallstones, a thickened gallbladder wall, and a positive Mcclain sign. She was admitted to the hospitalist for acute cholecystitis and started on antibiotics. Labs the next day showed her white count was down to 8, with resolved nausea but still some tenderness in the epigastric and right upper quadrant areas. Repeat labs today do not show worsening of liver function tests or lipase. Risks, benefits, and alternatives of laparoscopic, possible open cholecystectomy were discussed with the patient including, but not limited to, bleeding, infection, injury to adjacent structures, bile leak or ductal injury, intraabdominal abscess, hernia, need for further procedures. The patient desires to proceed with the operation, and informed consent was signed for the same. She is now brought to the operating room for this procedure. OPERATIVE TECHNIQUE: The patient was brought to the operating room and laid supine on the operating table. Sequential compression devices were applied to bilateral lower extremities, and as her treatment antibiotics had been given for more than 24 hours on the floor, no additional antibiotics were administered immediately preoperatively. After induction and intubation by Anesthesia, the patient's abdomen was prepped and draped in sterile fashion. Secondary to a supraumbilical piercing site, a small infraumbilical incision was made with a scalpel and carried into subcutaneous tissues with electrocautery until the abdominal wall fascia was identified, scored, and elevated with Gloria clamps. The peritoneum was entered bluntly with the tip of a clamp, and a fingertip inserted to ensure entry into the abdominal cavity and the absence of any underlying adhesions. A stay suture of 0 Vicryl was placed in figure-of-8 fashion in the fascia for later closure, and the Erickson trocar introduced directly into the abdominal cavity and secured with the balloon. The abdomen was insufflated with carbon dioxide. Patient was placed in reverse Trendelenburg position, and a laparoscope inserted to inspect the abdominal cavity. The gallbladder was immediately apparent and appeared to be tensely distended and quite large, with some thin, overlying omental adhesions. A 5-mm port was placed under direct vision in the subxiphoid area, through which a grasper was used to peel off some of the overlying omentum and confirm that the gallbladder was indeed tense and grossly distended. Two additional 5-mm ports were placed in the right upper quadrant under direct vision, through one of which, a decompression needle was introduced and used to attempt decompression of the gallbladder, but all we were able to get back was some very, very thick, light-colored, hydropic bile. Just as much oozed out of the hole in the gallbladder from the needle as was able to be obtained with a syringe. Ultimately, no more than approximately 10 mL was decompressed secondary to the viscosity of the bile, but it was enough to be able to grasp the fundus of the gallbladder and elevate it over the liver edge with one grasper. The gallbladder wall was noted to be extremely edematous. The second grasper was used to grasp the infundibulum of the gallbladder for lateral retraction. This took several tries, and a number of times, we were only able to grasp the edematous tissues covering the gallbladder wall. A [place] dissector was then used at the base of the gallbladder to begin dissecting away the very edematous tissues and peritoneum to identify the cystic duct and artery. There were multiple mobile stones palpable in the gallbladder. Ultimately, the cystic duct did come into view and was carefully isolated from both sides, medial and lateral, and visualized as the only structure directly entering the gallbladder in the critical view. This was then clipped two proximally and one distally with the Weck plastic locking clips, and divided between them. Further dissection of the tissues at the base of the gallbladder, looking for the cystic artery, was undertaken, and eventually behind the lymph node of Calot, a thin arterial structure was noted with a small branch off of it. Both of these appeared to head up directly onto the gallbladder, and one may have been connective tissue, but both were clipped with the 5-mm clipper, two proximally and one distally and divided with endoscissors. The second slightly larger of the structures did appear to pulsate after clipping. The hook cautery was then used to continue dividing the edematous tissues around the gallbladder wall and begin taking the gallbladder off of the liver bed itself. This was ultimately accomplished with the gallbladder being at the top edge of the liver entirely. The camera was moved temporarily to the subxiphoid port, and the gallbladder placed in an Endo Catch bag through the umbilical port site and retrieved out of this location, with some stretching of the peritoneum and fascia with a large Noreen clamp, to allow for passage of the gallbladder inside the bag. Again, multiple stones were palpable in the gallbladder after its removal. It was passed off as a pathology specimen. The Erickson trocar and pneumoperitoneum were re-established , and the camera returned to the umbilical port. The operative field was inspected for hemostasis. There had been some small amount of yellow, edematous fluid that initially appeared to be adjacent to the gallbladder on first entry into the abdominal cavity. It was later appreciated that this was more like some gelatinous, edematous fluid, but the entire area was irrigated with saline solution, and the tool used to suction all visible fluid, bile and blood from the area. The clips were re-visualized in the operative site. There was no active bleeding from the liver bed. The patient was returned to neutral position, and the omentum tucked up under the operative area. The 5-mm ports were removed under direct vision. The Erickson trocar and camera were then removed from the abdominal cavity, which was exsufflated of carbon dioxide. The stay suture at the umbilicus was tied to close the fascia there. Hemostasis was achieved in the port sites with electrocautery where needed, and local anesthetic was infiltrated into all 4 sites. Skin was closed with 4-0 Vicryl subcuticular sutures including a running at the umbilical site. Benzoin and Steri-Strips were applied to each incision, which were then covered with dressings of gauze and Tegaderm. Counts were correct at the end of the procedure. The patient was then awakened and extubated by Anesthesia, moved back to a stretcher, and taken to the recovery room in stable condition, having tolerated the procedure well. Dr. Brumfield was an essential marketing assistant throughout the procedure, from facilitating entry into the abdominal cavity, to grasping and manipulating the gallbladder throughout the procedure, assisting with its removal and skin closure. Shay [id number] MTDD
[2017-12-11] MEDS: PIPERACILLIN/TAZOB 3.375 GM 3.375 GM in DEXTROSE 5%-WATER - 50 ML IVPB SCH (01:57)
[2017-12-11] MEDS ORDERED: PANTOPRAZOLE 40 MG TABLET (FP) PO SCH (10:00)
[2017-12-11] MEDS ORDERED: PANTOPRAZOLE SODIUM 40 MG VIAL IVPUSH SCH (10:00)
--- NOTE | 2017-12-11 10:01 | PN ---
Progress Note, Physician History of Present Illness: post op patient doing well some discomfort tolerating diet well - Current Medication List Current Medications: Active Medications Acetaminophen (Tylenol -) 650 mg PO Q6H PRN PRN Reason: PAIN LEVEL 1 - 3 Acetaminophen/Codeine Phosphate (Tylenol # 3 -) 1 tab PO Q4H PRN PRN Reason: breakthrough pain scale 6-10 Last Admin: 12/10/17 20:26 Dose: 1 tab Potassium Chloride/Dextrose/Sod Cl (D5-1/2ns+20 Meq Kcl -) 20 meq in 1,000 mls @ 125 mls/hr IV ASDIR KARTIK Last Admin: 12/11/17 00:59 Dose: 125 mls/hr Ibuprofen (Motrin -) 600 mg PO Q6H PRN PRN Reason: PAIN LEVEL 4 - 6 Morphine Sulfate (Morphine Injection -) 2 mg IVPUSH Q3H PRN PRN Reason: breakthrough pain only Last Admin: 12/10/17 23:01 Dose: 2 mg Ondansetron HCl (Zofran Injection) 4 mg IVPB Q6H PRN PRN Reason: NAUSEA Pantoprazole Sodium (Protonix -) 40 mg PO DAILY [facility] - Objective Vital Signs: Vital Signs Temperature 98 F 12/11/17 07:29 Pulse Rate 77 12/11/17 07:29 Respiratory Rate 20 12/11/17 07:29 Blood Pressure 114/62 12/11/17 07:29 O2 Sat by Pulse Oximetry (%) 100 12/10/17 21:00 Constitutional: Yes: No Distress, Calm Cardiovascular: Yes: Regular Rate and Rhythm Respiratory: Yes: Regular, CTA Bilaterally Gastrointestinal: Yes: Normal Bowel Sounds, Soft Musculoskeletal: Yes: WNL Extremities: Yes: WNL Wound/Incision: Yes: Clean/Dry Neurological: Yes: Alert, Oriented Psychiatric: Yes: Alert, Oriented Labs: CBC, BMP 12/10/17 06:10 12/10/17 06:10 INR, PTT INR 1.12 (0.82-1.09) D 12/09/17 06:50 Assessment/Plan abd pain nausea vomiting ac choleycystitis Calculus of gallbladder with acute cholecystitis without obstruction Code(s): K80.00 - CALCULUS OF GALLBLADDER W ACUTE CHOLECYST W/O OBSTRUCTION Epigastric abdominal pain Code(s): R10.13 - EPIGASTRIC PAIN plan can change to oral augmentin hydration rest as per surgery patient for or today
--- NOTE | 2017-12-11 10:50 | PN ---
Progress Note, Physician History of Present Illness: s/p lap simona for acute cholecystitis tolerating diet - had some of dinner last night, ambulating and voiding well pain last night, mainly in umbilicus, got T#3 and morphine, has not had anything yet this am about to have breakfast feeling better - Current Medication List Current Medications: Active Medications Acetaminophen (Tylenol -) 650 mg PO Q6H PRN PRN Reason: PAIN LEVEL 1 - 3 Acetaminophen/Codeine Phosphate (Tylenol # 3 -) 1 tab PO Q4H PRN PRN Reason: breakthrough pain scale 6-10 Last Admin: 12/10/17 20:26 Dose: 1 tab Ibuprofen (Motrin -) 600 mg PO Q6H PRN PRN Reason: PAIN LEVEL 4 - 6 Ondansetron HCl (Zofran Injection) 4 mg IVPB Q6H PRN PRN Reason: NAUSEA Pantoprazole Sodium (Protonix -) 40 mg PO DAILY KARTIK - Objective Vital Signs: Vital Signs Temperature 98 F 12/11/17 07:29 Pulse Rate 77 12/11/17 07:29 Respiratory Rate 20 12/11/17 07:29 Blood Pressure 114/62 12/11/17 07:29 O2 Sat by Pulse Oximetry (%) 100 12/10/17 21:00 Constitutional: Yes: Well Nourished, No Distress, Calm Eyes: Yes: Conjunctiva Clear, EOM Intact. No: Sclera Icterus HENT: Yes: Atraumatic, Normocephalic Gastrointestinal: Yes: Soft, Distention (mild), Tenderness (mainly umbilical incisional, mild at lower right port also, no RUQ tenderness) Extremities: No: Cool, Cyanosis Integumentary: Yes: Body Piercing, Incision (x4 dressed), Tattoos. No: Jaundice Wound/Incision: Yes: Steri Strips (under dressings), Dressing Dry and Intact (x4 ). No: Dressing Removed Neurological: Yes: Alert, Oriented Psychiatric: Yes: Alert, Oriented Labs: Problem List - Problems (1) Calculus of gallbladder with acute cholecystitis without obstruction Assessment/Plan: POD1 s/p laparoscopic cholecystectomy doing well using IS, tolerating diet, ambulating and voiding no BM yet pain mostly incisional, manageable - will take tylenol and ibuprofen this am to see if really needs any narcotic combo on discharge presuming ok on po meds, d/c home after lunch to f/u in 2 wks instructions in d/c plan Code(s): K80.00 - CALCULUS OF GALLBLADDER W ACUTE CHOLECYST W/O OBSTRUCTION (2) Epigastric abdominal pain Assessment/Plan: resolved Code(s): R10.13 - EPIGASTRIC PAIN
--- NOTE | 2017-12-11 11:04 | DS ---
Physical Exam: SUBJECTIVE: Patient seen and examined OBJECTIVE: Vital Signs Period Temp Pulse Resp BP Sys/Garcia Pulse Ox Last 24 Hr 98 F-99.4 F 75-86 16-20 109-138/46-79 10-100 PHYSICAL EXAM GENERAL: The patient is awake, alert, and fully oriented, in no acute distress. LUNGS: Breath sounds equal, clear to auscultation bilaterally, no wheezes, no crackles, no accessory muscle use. HEART: Regular rate and rhythm, S1, S2 without murmur, rub or gallop. ABDOMEN: Soft, diffusely tender, nondistended, hypoactive bowel sounds, no guarding, no rebound; surgical trochanter site dressings c/d/i EXTREMITIES: 2+ pulses, warm, well-perfused, no edema. NEUROLOGICAL: Cranial nerves II through XII grossly intact. Normal speech, gait not observed. LABS CBCD WBC 9.1 K/mm3 (4.0-10.0) 12/10/17 06:10 RBC 4.56 M/mm3 (3.60-5.2) 12/10/17 06:10 Hgb 13.4 GM/dL (10.7-15.3) 12/10/17 06:10 Hct 40.5 % (32.4-45.2) 12/10/17 06:10 MCV 88.9 fl (80-96) 12/10/17 06:10 MCHC 33.0 g/dl (32.0-36.0) 12/10/17 06:10 RDW 13.2 % (11.6-15.6) 12/10/17 06:10 Plt Count 139 K/MM3 (134-434) 12/10/17 06:10 MPV 9.8 fl (7.5-11.1) 12/10/17 06:10 CMP Sodium 136 mmol/L (136-145) 12/10/17 06:10 Potassium 4.0 mmol/L (3.5-5.1) 12/10/17 06:10 Chloride 103 mmol/L (98-107) 12/10/17 06:10 Carbon Dioxide 28 mmol/L (21-32) 12/10/17 06:10 Anion Gap 5 (8-16) L 12/10/17 06:10 BUN 4 mg/dL (7-18) L 12/10/17 06:10 Creatinine 1.0 mg/dL (0.55-1.02) 12/10/17 06:10 Creat Clearance w eGFR > 60 (>60) 12/10/17 06:10 Calcium 8.2 mg/dL (8.5-10.1) L 12/10/17 06:10 Total Bilirubin 1.0 mg/dL (0.2-1.0) D 12/10/17 06:10 AST 8 U/L (15-37) L 12/10/17 06:10 ALT 13 U/L (12-78) 12/10/17 06:10 Alkaline Phosphatase 67 U/L (45-117) 12/10/17 06:10 Total Protein 6.8 g/dl (6.4-8.2) 12/10/17 06:10 Albumin 3.5 g/dl (3.4-5.0) 12/10/17 06:10 HOSPITAL COURSE: Date of Admission:12/09/17 Date of Discharge: 12/11/17 22 year old female with no significant PMH admitted for acute cholecystitis. Acute cholecystitis s/p laparoscopic cholecystectomy 12/10 --tolerating PO --pain well-managed --surgery f/u 2 weeks Minutes to complete discharge: 35 Discharge Summary Reason For Visit: ACUTE CHOLECYSTITIS Current Active Problems Acute cholecystitis due to biliary calculus (Acute) Calculus of gallbladder with acute cholecystitis without obstruction (Acute) Epigastric abdominal pain (Acute) Nausea & vomiting (Acute) Condition: Improved - Instructions Diet, Activity, Other Instructions: Postoperative instructions: You had a laparoscopic cholecystectomy on 12/10/[address] Scott Ambriz of [facility]. Activity: Resume your usual activities gradually, but no heavy exertion or lifting more than 10-20 pounds for 1 month. Remove dressings 48 hours after surgery; sticky tapes underneath will fall off by themselves. You may shower daily starting then, just pat the incision areas dry. No bath or swimming until skin incisions have healed. Eat lightly at first, but advance to your usual diet as tolerated. Pain: For pain, you may use and alternate Tylenol (acetaminophen) 2 tabs ( regular or extra strength) and/or ibuprofen 200-600mg every 6 hours each as needed; this means that you can take one OR the other at 3-hour intervals. If you are prescribed a Tylenol/narcotic combination for severe pain, use it instead of plain Tylenol as needed and switch back when your pain starts decreasing. Do not take more than 4000mg of acetaminophen in a day. Take medications as prescribed or indicated on the labeling. Follow-up: Call Dr. Ambriz's office at [phone] to make your postop appointment (Sunday ~2 weeks after surgery). Clinic is held in the Diagnostic Center on the first floor of [facility]. Call the office if you have: * increasing pain not responsive to pain medication * fever of 101F or higher * vomiting * unusual or increasing bleeding or drainage from wounds * increasing redness or swelling at wound sites Also, see your primary medical doctor within 1-2 weeks. Referrals: Scott Ambriz MD [Staff Physician] - 2 Weeks Jessa Esquivel [Primary Care Provider] - Disposition: HOME - Home Medications Comprehensive Discharge Medication List: Ambulatory Orders NK [No Known Home Medication] 12/08/17 This patient is new to me today: No Emergency Visit: Yes ED Registration Date: 12/09/17 Care time: The patient presented to the Emergency Department on the above date and was hospitalized for further evaluation of their emergent condition. Critical Care patient: No - Discharge Referral Referred to [facility] Med P.C.: No
[2017-12-11 17:17] VITALS: BP 139/59; PULSE 102; TEMP 98.5
--- NOTE | 2017-12-12 11:10 | PATH ---
Surgical Pathology Report Patient Name: SAAD GARCIA Med. Rec. #: [id number] /Age/Gender: 1995 (Age: 22) / F Account: [id number] Location: [facility] MED/SURG Taken: 12/10/2017 Received: 12/11/2017 Reported: 12/12/2017 Physicians: Scott Ambriz M.D. Specimen(s) Received GALLBLADDER Clinical History Acute cholecystitis Final Diagnosis GALLBLADDER, LAPAROSCOPIC CHOLECYSTECTOMY: ACUTE AND CHRONIC CHOLECYSTITIS WITH CHOLELITHIASIS. ONE BENIGN LYMPH NODE (0/1). Electronically Signed Hailee Weiner M.D. Gross Description Received in formalin, labeled "gallbladder," is a 11.5 x 4.3 x 4.8 cm. gallbladder with a 1.5 cm. in length portion of cystic duct attached. The outer surface is a orta and red and varies from smooth to shaggy. The lumen contains a red and brown viscous fluid, along with 3 yellow and brown calculi each of which is between 1.8 and 2.1 cm in greatest dimension. The mucosa is red and escoto. The wall of the gallbladder measures 0.7 cm. in thickness. A 1.6 cm in greatest dimension ovoid pericystic lymph node is present. Blueprint Developer sections of the gallbladder are submitted in cassette 1. Lymph node is bisected and submitted in cassette 2. [facility]/12/11/2017 [facility]/12/11/2017
== END 2017-12-11 17:47 | disposition home or self-care (01) | DRG 263 ==
LOC: JER 22:29 → JERBED 12-09 01:35 → UNDOADMIN 12-09 01:42 → J8W 12-09 02:40
PROVIDERS: ADMIT Internal Medicine; ATTEND Nurse Practitioner Acute Care
PROC: 0FT44ZZ Resection of Gallbladder, Percutaneous Endoscopic Approach (ICD-10-PCS; principal; 2017-12-10 11:00)
DX: K80.12 Calculus of gallbladder with acute and chronic cholecystitis without obstruction (principal); R11.2 Nausea with vomiting, unspecified; R10.13 Epigastric pain
CPT/HCPCS: 36415; 76705-TC; 80053; 81003; 81015; 83690; 84702; 84703; 85025; 85610; 85730; 86850; 86900; 86901; 87086; 88304-TC; 93005; 93010; 99284-25

== ENCOUNTER 2018-11-11 19:44 | Emergency (ER) | payer OTHER ==
[2018-11-11 20:45] VITALS: BP 130/49; PULSE 88; TEMP 98; BMI 33.2
--- NOTE | 2018-11-11 20:46 | PDOC ---
Rapid Medical Evaluation Chief Complaint: Headache Medical Evaluation: Allergies Allergy/AdvReac Type Severity Reaction Status Date / Time No Known Allergies Allergy Verified 08/05/18 14:10 11/11/18 20:41 I have performed a brief in-person evaluation of this patient. The patient presents with a chief complaint of: pain to right forehead/ 3 weeks , NO uri SYMPTOMS Pertinent physical exam findings: A O x 3 , NON TOXIC . / no photophobia I have ordered the following: ucg The patient will proceed to the ED for further evaluation. 11/11/18 20:44 Discharge Disposition - Diagnosis Headache - Referrals Referrals: Jason Conte MD [Primary Care Provider] - - Patient Instructions - Post Discharge Activity
[2018-11-11] MEDS ORDERED: ACETAMINOPHEN 500 MG TABLET (FP) PO ONE (22:25)
[2018-11-11] MEDS ORDERED: ACETAMINOPHEN 500 MG TABLET (FP) ONE (22:28)
--- NOTE | 2018-11-11 22:28 | PDOC ---
History of Present Illness - General Chief Complaint: Headache Stated Complaint: Headache Time Seen by Provider: 11/11/18 22:17 - History of Present Illness Initial Comments: 11/11/18 22:25 23-year-old female without comorbidities presents for evaluation of frontal headache 2 months associated with a new eyeglass prescription. The headache is not sudden onset, there are no visual changes. She denies morning headaches. No systemic symptoms. Past History - Past Medical History Allergies/Adverse Reactions: Allergies Allergy/AdvReac Type Severity Reaction Status Date / Time No Known Allergies Allergy Verified 08/05/18 14:10 Home Medications: Ambulatory Orders NK [No Known Home Medication] 08/05/18 Asthma: No Cancer: No Cardiac Disorders: No COPD: No CHF: No Diabetes: No HTN: No Seizures: No Thyroid Disease: No - Reproductive History (#): 3 Para: 1 Cervical CA: No Dysfunctional Uterine Bleeding: No Ectopic : No Endometrial CA: No Polycystic Ovaries: No Therapeutic (s) & number: Yes (1) Tubal Ligation: No Spontaneous : 0 - Immunization History Immunization Up to Date: Yes - Suicide/Smoking/Psychosocial Hx Smoking Status: No Smoking History: Never smoked Have you smoked in the past 12 months: No Number of Cigarettes Smoked Daily: 0 Hx Alcohol Use: No Drug/Substance Use Hx: No Substance Use Type: None Hx Substance Use Treatment: No Review of Systems - Review of Systems Constitutional: No: Fever HEENTM: No: Eye Pain, Blurred Vision, Double Vision Neurological: Yes: Headache *Physical Exam - Vital Signs Last Vital Signs Temp Pulse Resp BP Pulse Ox 98 F 88 20 130/49 L 97 11/11/18 20:41 11/11/18 20:41 11/11/18 20:41 11/11/18 20:41 11/11/18 20:41 - Physical Exam Comments: 11/11/18 22:26 HEAD: NC/AT EYES: Conjuntiva clear; EOMI PERRL Ears: Canals and TM's normal NOSE: No d/c THROAT: Moist mucous membrances, oral pharanx clear, uvula midline NECK: Supple without adenopathy CARDIAC: S1 S2 LUNGS: CTA Full and Equal breath sounds ABDOMEN: Soft NT ND MS: Full ROM in all joints without edema NEUROLOGIC: No gross sensory or motor deficits, NVID SKIN: Normal color and temperature no lesions or rashes Moderate Sedation - Procedure Monitoring Vital Signs: Procedure Monitoring Vital Signs Temperature 98 F 11/11/18 20:41 Pulse Rate 88 11/11/18 20:41 Respiratory Rate 20 11/11/18 20:41 Blood Pressure 130/49 L 11/11/18 20:41 O2 Sat by Pulse Oximetry (%) 97 11/11/18 20:41 ED Treatment Course - ADDITIONAL ORDERS Additional order review: Laboratory Results 11/11/18 21:07 Urine HCG, Qual Negative *DC/Admit/Observation/Transfer Diagnosis at time of Disposition: Headache - Discharge Dispostion Disposition: HOME Condition at time of disposition: Improved Decision to Admit order: No - Referrals Referrals: Jason Conte MD [Primary Care Provider] - Olegario Beatty MD [Staff Physician] - - Patient Instructions Printed Discharge Instructions: DI for Headache Additional Instructions: He may take Tylenol and Motrin for headache as directed. Please follow-up with your eye doctor as well as neurology for further evaluation and treatment options of your headache. Return to the emergency room should symptoms worsen or go unresolved. - Post Discharge Activity
== END 2018-11-11 23:15 | disposition home or self-care (01) ==
LOC: JERFT 19:44 → JER 19:44 → JERFT 23:15
DX: R51 Headache (principal)
CPT/HCPCS: 84703; 99281-25

== ENCOUNTER 2020-08-02 10:09 | Emergency (ER) | payer OTHER ==
[2020-08-02 10:22] VITALS: BP 121/68; PULSE 73; TEMP 98.2; BMI 30.9
[2020-08-02] MEDS ORDERED: KETOROLAC TROMETHAMINE 30 MG/1 ML VIAL IM ONE (10:33)
[2020-08-02] MEDS ORDERED: METHOCARBAMOL 500 MG TABLET PO ONE (10:33)
[2020-08-02] MEDS ORDERED: KETOROLAC TROMETHAMINE 30 MG/1 ML VIAL ONE (10:44)
[2020-08-02] MEDS ORDERED: METHOCARBAMOL 500 MG TABLET ONE (10:44)
[2020-08-02 10:59] LABS: EPI CELLS >36 /uL (0-25.1); HYALINE CASTS 2 /uL (0-3.1); URINE APPEARANCE CLOUDY; URINE BACTERIA 2316 /uL (0-1359); URINE BILIRUBIN NEGATIVE (NEGATIVE); URINE COLOR YELLOW; URINE GLUCOSE (UA) NEGATIVE (NEGATIVE); URINE KETONE NEGATIVE (NEGATIVE); URINE LEUK ESTERASE 2+ (NEGATIVE); URINE NITRITE NEGATIVE (NEGATIVE); URINE PROTEIN NEGATIVE (NEGATIVE); URINE UROBILINOGEN 0.2 mg/dL (0.2-1.0); URINE WBC 344 /uL (0-25.8)
--- NOTE | 2020-08-02 11:11 | PDOC ---
History of Present Illness - General Chief Complaint: Back Pain Stated Complaint: BACK PAIN Time Seen by Provider: 08/02/20 10:25 History Source: Patient Exam Limitations: Clinical Condition - History of Present Illness Initial Comments: 08/02/20 11:07 Patient with no significant past medical history present with complaint of sudden onset of left mid back pain radiating to left lower back upon wake this morning. Described pain as cramping pain to left lower back. Patient denies urinary symptoms of dysuria, burning or hematuria. LMP a week ago. Denies nausea, vomiting, fever, chills, vaginal discharge. Patient denies any other symptoms Occurred: reports: this morning Severity: reports: moderate Pain Location: reports: back (left mid-back pain) Past History - Medical History Allergies/Adverse Reactions: Allergies Allergy/AdvReac Type Severity Reaction Status Date / Time No Known Allergies Allergy Verified 08/02/20 10:14 Home Medications: Ambulatory Orders Cephalexin Monohydrate [Keflex -] 500 mg PO Q8H 7 Days #21 capsule 08/02/20 Ketorolac Tromethamine [Toradol] 10 mg PO Q8H PRN #20 tablet 08/02/20 Methocarbamol [Robaxin -] 500 mg PO BID #14 tablet 08/02/20 Polyethylene Glycol 3350 [Miralax (For Daily Use) -] 17 gm PO DAILY #1 bottle 08/02/20 Asthma: No Cancer: No Cardiac Disorders: No COPD: No CHF: No Diabetes: No HTN: No Seizures: No Thyroid Disease: No - Reproductive History Is Patient Now?: No (#): 3 Para: 1 Cervical CA: No Dysfunctional Uterine Bleeding: No Ectopic : No Endometrial CA: No Polycystic Ovaries: No Therapeutic (s) & number: Yes (1) Tubal Ligation: No Spontaneous : 0 - Immunization History Immunization Up to Date: Yes - Psycho-Social/Smoking History Smoking Status: No Smoking History: Never smoked Have you smoked in the past 12 months: No Number of Cigarettes Smoked Daily: 0 - Substance Abuse Hx (Audit-C & DAST Scrn) How often the patient has a drink containing alcohol: Never Score: In Men: 4 or > Positive; In Women: 3 or > Positive: 0 Screen Result (Pos requires Nsg. Audit-10AR): Negative In the last yr the pt used illegal drug/Rx for NonMed reason: No Score: Yes response is considered Positive: 0 Screen Result (Positive result requires Nsg. DAST-10): Negative Review of Systems - Review of Systems Able to Perform ROS?: Yes Is the patient limited [place] proficient: No Constitutional: No: Chills, Fever, Malaise HEENTM: No: Symptoms Reported, See HPI, Eye Pain, Blurred Vision, Tearing, Recent change in vision, Double Vision, Cataracts, Ear Pain, Ocular Prothesis, Ear Discharge, Nose Pain, Nose Congestion, Tinnitus, Nose Bleeding, Hearing Loss, Throat Pain, Throat Swelling, Mouth Pain, Dental Problems, Difficulty Swallowing, Mouth Swelling, Other Respiratory: No: Symptoms reported, See HPI, Cough, Orthopnea, Shortness of Breath, SOB with Exertion, SOB at Rest, Stridor, Wheezing, Productive cough, Hemoptysis, Other Cardiac (ROS): No: Symptoms Reported, See HPI, Chest Pain, Edema, Irregular Heart Rate, Lightheadedness, Palpitations, Syncope, Chest Tightness, Other ABD/GI: No: Symptoms Reported, Nausea, Vomiting Musculoskeletal: Yes: Symptoms Reported, See HPI, Back Pain (left lower back pain) Integumentary: No: Symptoms Reported All Other Systems: Reviewed and Negative *Physical Exam - Vital Signs Last Vital Signs Temp Pulse Resp BP Pulse Ox 98.2 F 73 18 121/68 100 08/02/20 10:14 08/02/20 10:14 08/02/20 10:14 08/02/20 10:14 08/02/20 10:14 - Physical Exam 08/02/20 11:11 GENERAL: Well developed, well nourished. Awake and alert. No acute distress. CARDIOVASCULAR: Regular rate and rhythm. No murmurs, rubs, or gallops. PULMONARY: No evidence of respiratory distress. Lungs clear to auscultation bilaterally. No wheezing, rales or rhonchi. ABDOMINAL: Soft. Non-tender. Non-distended. No rebound or guarding. No organomegaly. Normoactive bowel sounds MUSCULOSKELETAL :moderate tenderness to left paravertebral muscle of lumbar spin e of L2-L4 on left side. No midline tenderness. Increase pain to left side with rotation of the hip to right side. No tenderness to rest of the back. Negative CVA tenderness. No abdominal tenderness. SKIN: Warm and dry. Normal capillary refill. No rashes. No jaundice. NEUROLOGICAL: Alert, awake, appropriate. No motor deficits in the lower extremities. Gait is normal without ataxia. PSYCHIATRIC: Cooperative. Good eye contact. Appropriate mood and affect. General Appearance: Yes: Nourished, Appropriately Dressed. No: Apparent Distress ED Treatment Course - ADDITIONAL ORDERS Additional order review: Laboratory Results 08/02/20 10:13 Urine Color Yellow Urine Appearance Cloudy Urine pH 6.0 Ur Specific [place] 1.016 Urine Protein Negative Urine Glucose (UA) Negative Urine Ketones Negative Urine Blood 2+ H Urine Nitrite Negative Urine Bilirubin Negative Urine Urobilinogen 0.2 Ur Leukocyte Esterase 2+ H Urine WBC (Auto) 344 Urine Casts (Auto) 2 U Epithel Cells (Auto) >36 Urine Bacteria (Auto) 2316 - Medications Given in the ED: ED Medications Discontinued Medications Generic Name Dose Route Start Last Admin Trade Name Freq PRN Reason Stop Dose Admin Ketorolac Tromethamine 30 mg 08/02/20 10:33 08/02/20 10:45 Toradol Injection - IM 08/02/20 10:34 30 mg ONCE ONE Administration Methocarbamol 1,000 mg 08/02/20 10:33 08/02/20 10:45 Robaxin - PO 08/02/20 10:34 1,000 mg ONCE ONE Administration Medical Decision Making - Medical Decision Making 08/02/20 11:09 Patient with no significant past medical history present with complaint of sudden onset of left mid back pain radiating to left lower back upon wake this morning. Described pain as cramping pain to left lower back. Patient denies urinary symptoms of dysuria, burning or hematuria. LMP a week ago. Denies nausea, vomiting, fever, chills, vaginal discharge. Patient denies any other symptoms Exam significant for moderate tenderness to left paravertebral muscle of lumbar spine of L2-L4 on left side. No midline tenderness. Increase pain to left side with rotation of the hip to right side. No tenderness to rest of the back. Negative CVA tenderness. No abdominal tenderness. Symptoms likely musculoskeletal pain versus cystitis versus kidney stone. UA, urine culture and urine hCG lab ordered. Urine GC and chlamydia ordered. Toradol 30 mg IM and Robaxin thousand milligrams p.o. ordered for pain. Treat based on urine results 08/02/20 11:38 UA shows moderate leukocytosis with WBCs and hematuria. Urine hCG negative. Given hematuria and left mid back pain, will do spiral CT to rule out kidney stone 08/02/20 13:[address] shows moderate stool with bowel gas consistent with constipation otherwise with no acute findings. No renal stone found on CT. Patient stable for discharge on Keflex antibiotics for cystitis and Toradol and Robaxin for muscle pain with MiraLAX for constipation with advised to increase fluid and fiber intake for constipation with GI follow-up. Treatment plan discussed with patient and patient agrees with treatment plan. Patient left department without complication Discharge - Discharge Information Problems reviewed: Yes Clinical Impression/Diagnosis: UTI (urinary tract infection) Qualifiers: Urinary tract infection type: acute cystitis Hematuria presence: without hematuria Qualified Code(s): N30.00 - Acute cystitis without hematuria Low back pain Qualifiers: Chronicity: acute Back pain laterality: right Sciatica presence: without sciatica Qualified Code(s): M54.5 - Low back pain Constipation Qualifiers: Constipation type: unspecified constipation type Qualified Code(s): K59.00 - Constipation, unspecified Condition: Stable Disposition: HOME - Admission No - Additional Discharge Information Prescriptions: Cephalexin Monohydrate [Keflex -] 500 mg PO Q8H 7 Days #21 capsule Polyethylene Glycol 3350 [Miralax (For Daily Use) -] 17 gm PO DAILY #1 bottle Methocarbamol [Robaxin -] 500 mg PO BID #14 tablet Ketorolac Tromethamine [Toradol] 10 mg PO Q8H PRN #20 tablet PRN Reason: pain - Follow up/Referral Referrals: Yanick Foley MD [Primary Care Provider] - Merary Foley MD [Staff Physician] - - Patient Discharge Instructions Patient Printed Discharge Instructions: DI for Urinary Tract Infection (UTI), DI for Constipation Additional Instructions: Your blood work is normal. Your urine shows bacteria in the urine which you are being treated for UTI. Your abdominal CAT scan also shows stool in your colon consistent with constipation. Take prescribed MiraLAX as needed for constipation for the next few days. Increase fluid and fiber intake. Follow-up referred GI doctor if abdominal pain persists otherwise follow with your primary care - Post Discharge Activity
[2020-08-02 14:20] LABS: URINE RBC 80.6 /uL (0-23.9)
== END 2020-08-02 13:03 | disposition home or self-care (01) ==
LOC: JERFT 10:09 → JER 10:09 → JERFT 13:03
PROC: 3E0233Z Introduction of Anti-inflammatory into Muscle, Percutaneous Approach (ICD-10-PCS; principal; 2020-08-02)
DX: M54.5 Low back pain (principal); N30.00 Acute cystitis without hematuria; K59.00 Constipation, unspecified
CPT/HCPCS: 36415; 74176-TC; 81003; 84703; 87086; 87491; 87591; 99284-25

== ENCOUNTER 2020-08-04 12:03 | Emergency (ER) | payer OTHER ==
[2020-08-04 12:07] VITALS: BP 106/71; PULSE 81; TEMP 98.1; BMI 34.5
[2020-08-04] MEDS ORDERED: AZITHROMYCIN 500 MG TABLET PO ONE (12:08)
[2020-08-04] MEDS ORDERED: AZITHROMYCIN 250 MG TABLET ONE (12:13)
--- NOTE | 2020-08-04 12:23 | PDOC ---
History of Present Illness - General Chief Complaint: Revisit, Lab Variance Stated Complaint: FOLLOW UP Time Seen by Provider: 08/04/20 12:07 - History of Present Illness Initial Comments: 08/04/20 12:21 24-year-old female with no comorbidities presents for evaluation from a positive gonorrhea Test. She is seeking treatment. Past History - Medical History Allergies/Adverse Reactions: Allergies Allergy/AdvReac Type Severity Reaction Status Date / Time No Known Allergies Allergy Verified 08/04/20 12:07 Home Medications: Ambulatory Orders Cephalexin Monohydrate [Keflex -] 500 mg PO Q8H 7 Days #21 capsule 08/02/20 Ketorolac Tromethamine [Toradol] 10 mg PO Q8H PRN #20 tablet 08/02/20 Methocarbamol [Robaxin -] 500 mg PO BID #14 tablet 08/02/20 Polyethylene Glycol 3350 [Miralax (For Daily Use) -] 17 gm PO DAILY #1 bottle 08/02/20 Asthma: No Cancer: No Cardiac Disorders: No COPD: No CHF: No Diabetes: No HTN: No Seizures: No Thyroid Disease: No - Reproductive History Is Patient Now?: No (#): 3 Para: 1 Cervical CA: No Dysfunctional Uterine Bleeding: No Ectopic : No Endometrial CA: No Polycystic Ovaries: No Therapeutic (s) & number: Yes (1) Tubal Ligation: No Spontaneous : 0 - Immunization History Immunization Up to Date: Yes - Psycho-Social/Smoking History Smoking Status: No Smoking History: Never smoked Have you smoked in the past 12 months: No Number of Cigarettes Smoked Daily: 0 Information on smoking cessation initiated: No - Substance Abuse Hx (Audit-C & DAST Scrn) How often the patient has a drink containing alcohol: Never Score: In Men: 4 or > Positive; In Women: 3 or > Positive: 0 Screen Result (Pos requires Nsg. Audit-10AR): Negative In the last yr the pt used illegal drug/Rx for NonMed reason: No Score: Yes response is considered Positive: 0 Screen Result (Positive result requires Nsg. DAST-10): Negative Review of Systems - Review of Systems Constitutional: No: Fever *Physical Exam - Vital Signs Last Vital Signs Temp Pulse Resp BP Pulse Ox 98.1 F 81 19 106/71 99 08/04/20 12:05 08/04/20 12:05 08/04/20 12:05 08/04/20 12:05 08/04/20 12:05 - Physical Exam General Appearance: Yes: Nourished, Appropriately Dressed. No: Apparent Distress HEENT: positive: Symmetrical Neck: positive: Supple Respiratory/Chest: negative: Respiratory Distress ED Treatment Course - Medications Given in the ED: ED Medications Discontinued Medications Generic Name Dose Route Start Last Admin Trade Name Jojo PRN Reason Stop Dose Admin Azithromycin 1,000 mg 08/04/20 12:08 08/04/20 12:17 Zithromax PO 08/04/20 12:09 1,000 mg ONCE ONE Administration Ceftriaxone Sodium 250 mg 08/04/20 12:08 08/04/20 12:17 Rocephin - IM 08/04/20 12:09 250 mg ONCE ONE Administration Medical Decision Making - Medical Decision Making 08/04/20 12:22 I have reviewed the pathophysiology with the patient. They are in agreement with the treatment plan all questions were answered to their satisfaction. Understanding for follow-up without fail was also conveyed to the patient. Again they are in agreement. Discharge - Discharge Information Problems reviewed: Yes Clinical Impression/Diagnosis: Gonorrhea Condition: Stable Disposition: HOME - Admission No - Follow up/Referral Referrals: Yanick Foley MD [Primary Care Provider] - - Patient Discharge Instructions Additional Instructions: You were treated today for gonorrhea and chlamydia. Please follow-up with your primary care physician in 1 to 2 days for further evaluation and treatment options Abstain from sexual activity for the next 2 weeks or until reevaluated by a physician. Return to the emergency room at any time for further issues. - Post Discharge Activity
== END 2020-08-04 12:39 | disposition home or self-care (01) ==
LOC: JERFT 12:03
DX: A54.9 Gonococcal infection, unspecified (principal)
CPT/HCPCS: 99284-25